=== PATIENT | male | born 1995 | race Caucasian/White ===

== ENCOUNTER 2022-12-29 08:10 | Outpatient (CLI) | payer BC, SELFPAY | END 2022-12-29 08:11 | disposition home or self-care (01) | PROVIDERS: PCP Family Medicine; Visit Provider Family Medicine | DX: Z00.00 Encounter for general adult medical examination without abnormal findings (principal); L30.1 Dyshidrosis [pompholyx] | CPT/HCPCS: 80048; 80061 ==